=== PATIENT | female | born 1940 | race Caucasian/White ===

== ENCOUNTER 2024-08-02 18:41 | Inpatient (IN) | payer OTHER, SELFPAY ==
[2024-08-02 14:17] VITALS: BP 121/71
--- NOTE | 2024-08-02 15:47 | ED.GENMED ---
History of Present Illness
General
Chief Complaint: Fall
Source: patient
Exam Limitations: none
Time Seen by Provider: 08/02/24 15:08
Nursing documentation reviewed up to this point in time: agreed with
History of Present Illness
History of Present Illness:
Patient is an 84-year-old female who was in her kitchen today and was putting 1/2 gallon milk back into refrigerator and fell landing on her buttocks. She complains of pain to the left buttocks area. She denies hitting her head. She was able to
get herself up however called her son because she had increasingly worse pain. She complains of pain in the left buttocks. Son reports she could not walk on her own. Her primary complaint is left buttocks pain. She reports pain is not in her
back. She does feel slightly in her left leg.
She denies any headache nausea vomiting neck pain. She has not taken anything for pain.
She typically takes Tylenol as needed for arthritis discomfort but is asking for something stronger because of how bad her pain is.
Past History
Past History
ED Past Medical History: Other (Rheumatoid arthritis) and Other (Chronic low back pain)
ED Past Surgical History: Other (Pelvic mesh)
Social History
Tobacco: Non-smoker
Alcohol: None
Drug: None
Personal:
Living: with family
Review of Systems
Review of Systems
Allergies reviewed?: Yes
All Other Systems: ROS reviewed and negative except as documented in HPI and ROS
Constitutional: Reports no symptoms
Respiratory: Reports no symptoms
Cardiac: Reports no symptoms
ABD/GI: Reports no symptoms; Denies nausea or vomiting
Musculoskeletal: Reports other (Pain to left buttocks); Denies neck pain or back pain
Skin: Reports no symptoms
Neurological: Reports no symptoms and other (Denies hitting her head); Denies dizzy or headache
Psychiatric: Reports no symptoms
Phy Exam
General Physical Exam
General Presentation: no apparent distress
General age: appears stated age
General Skin: warm and dry
General Habitus: normal
General Mental: alert
General Hydration: appears well hydrated
Neurological Exam
Neurological Exam: alert and oriented x3
Musculoskeletal Exam
Musculoskeletal Exam: full ROM and other (No obvious head injury on exam no bony cervical spine thoracic or lumbar tenderness patient has tenderness to her left buttocks area however there is no visible ecchymosis abrasions no palpable hematoma.
She has full range of motion internal and external to left hip)
Skin Exam
Skin Exam: normal color and warm/dry
Psychiatric Exam
Psychiatric Exam: normal mood/affect
Course
Orders/Labs/Results
Orders:
Orders
08/02/24 15:49
IV Insert/Care/Rem.- Treatment PRN
Morphine Sulfate 2 mg IV NOW STA
Hip, Left 2-3 Views [CR Hip - LT w/wo Pel 2-3 Vw*] Urgent
Comment:
Reason For Exam: trauma
Include a pelvis x-ray?: Yes
08/02/24 16:27
Complete Blood Count/With Diff Urgent
Comprehensive Metabolic Panel Urgent
08/02/24 16:37
CT Pelvis W/o Iv Contrast Urgent
Comment:
Reason For Exam: trauma
08/02/24 17:34
Potassium Chloride 10% Elixir [KCl Elixir] 40 meq PO NOW STA
08/02/24 18:15
Admit/Transfer Patient As Directed
Co-Sign Provider:
Level of Care: Inpatient admission
Assign to:: Medical/Surgical
Physician / Group: tylor stiles
Diagnosis: mechn fall L acetabular and pubic rami fx
Reason for Hospitalization: mechn fall L acetabular and pubic rami fx
Expected length of stay greater than two midnights?: Yes
ELOS- Estimated Length of Stay in days: 3
I certify the patient meets the requirements for IP care: Yes
Code Status As Directed
Resuscitation Status: Full Code
08/02/24 18:20
PRN Pain Medication Management As Directed
May give lesser potent ordered pain med per pt: Yes
preference::
Protocol:: Medication orders for pain may be administered in a
manner that supports deferring to patient preference
when the pt is:
- Requesting an ordered lesser potent pain medication.
Least to most potent pain medications are defined
as: acetaminophen < NSAID < tramadol < opioids
(morphine, oxycodone, hydromorphone).
- Requesting a lesser dose of the same medication IF
ORDERED.
- Requesting a less intrusive route of administration
if both routes are prescribed by the provider (PO <
IV).
08/02/24 19:55
Magnesium Hydroxide [Milk of Magnesia] 30 ml PO DAILYPRN PRN
Morphine Sulfate 2 mg IV Q2HPRN PRN
Oxycodone [Roxicodone] 5 mg PO Q4HPRN PRN
Tamsulosin [Flomax] 0.4 mg PO DAILYPRN PRN
08/02/24 19:55
ORTHOPEDIC CONSULT Routine
Consulting Provider: Scott Lee
Was physician already notified: Yes
Reason for consult: fall pubic rami abd acetabular fx left
Activity As Directed
Activity Level: Bedrest
Bladder Scan As Directed
Follow Bladder Retention/Intermittent Cath Algorithm?: Yes
PRN if no void in __ hours: 6
Comment: if not voiding 6 hrs upon arrival to floor, bladder scan & follow algorithm
Intake/ Output As Directed
Frequency: Per unit guidelines
Straight Cath As Directed
Frequency: Per Retention Algorithm
Additional Instructions: straight cath as needed per acute urinary retention algorithm for 24 hrs
Additional Instructions: for bladder scan greater than 400 mL
Vital Signs As Directed
Frequency: Per unit guidelines
Ot Eval And Treat Routine
DX Deep Vein Thrombosis Video Routine
08/02/24 20:00
Acetaminophen [Tylenol] 650 mg PO Q4HWA
Docusate Sodium [Colace] 100 mg PO BID
Sennosides [Senokot] 17.2 mg PO BID
08/03/24 08:00
Calcium Carbonate/Vitamin D3 [Oscal 500 + D] 500 mg PO DAILY
FOLic ACID [Folvite] 0.8 mg PO DAILY
Hydroxychloroquine [Plaquenil] 400 mg PO DAILY
Prednisone [Deltasone] 5 mg PO DAILY
08/03/24 18:00
Enoxaparin Sodium [Lovenox] 40 mg SC QPM
Abnormal Lab Results
08/02/24
16:27
RBC 3.57 L 10^6/uL
(4.20-5.40)
Hgb 10.4 L g/dL
(12.0-16.0)
Hct 31.9 L %
(37.0-47.0)
MCHC 32.6 L g/dL
(33.0-37.0)
RDW 14.8 H %
(11.5-14.5)
Absolute Neuts (auto) 7.9 H 10^3/uL
(1.4-6.5)
Absolute Lymphs (auto) 1.0 L 10^3/uL
(1.2-3.4)
Neutrophils % 81.9 H %
(42.2-75.2)
Lymphocytes % 10.5 L %
(20.5-51.1)
Sodium 134 L mmol/L
(135-145)
Potassium 3.2 L mmol/L
(3.5-5.1)
Glucose 120 H mg/dl
(70-99)
Total Protein 6.2 L g/dl
(6.3-8.2)
08/02/24 16:27
08/02/24 16:27
Vital Signs
Initial and Last Documented VS:
Initial Vital Signs
Pulse Resp Pulse Ox
81 20 95
08/02/24 14:16 08/02/24 14:16 08/02/24 14:16
Last Documented Vital Signs
Temp Pulse Resp BP Pulse Ox
97.6 F 79 16 129/77 96
08/02/24 23:10 08/02/24 23:10 08/02/24 23:10 08/02/24 23:10 08/02/24 23:10
Biomass Plant Manager consulted with Physician
Biomass Plant Manager consulted with physician?: Yes
Name of Physician Consulted: salomón
MDM/Problems Addressed
Differential Diagnosis Includes:
not limited to: pelvic fracture, hip fracture/contusion
MDM/Problems Addressed:
Patient is an 84-year-old female who describes mechanical fall landing on her left buttocks. She complains of pain to the left buttocks area was able to even stand prior to arrival. Son had a lot of difficulty bringing patient into the ER. She
denies hitting her head denies any neck pain. On exam she is no obvious tenderness to her cervical thoracic or lumbar tenderness. She has tenderness throughout her left buttocks and has pain with range of motion twisting and turning in the
stretcher. She does have good internal/external rotation of her hip however. X-ray does show a pelvic fracture. Patient can barely sit up on her own without being in discomfort and clearly cannot stand on her own with pain. Will require
admission for pain control. Case reviewed orthopedics who does request CAT scan. Basic blood work done for admission purposes. She is stable vital and is afebrile with a normal white count stable at 10.4; potassium mildly low at 3.2 normal renal
function.
Case discussed admitting hospitalist.
CAT scan does show pelvic fractures including nondisplaced fracture of the left acetabulum and nondisplaced fracture of the inferior left sacral angelica and a displaced fracture of the left inferior pubic ramus
*Radiology
Radiology exam reviewed: preliminary read by ED provider (Left pubic ramus) and radiology read reviewed
*Pulse Oximetry
Patient hypoxic: no
*Critical Care Note
Total Time (30-74mins, 75-104mins- exclusive of procedures): Not Applicable
Patient Management
Discussion with other providers: Final Inspector Balance Wheel (Orthopedic Dr. Lee)
ED Attending Note
-
Portions of this chart may have been created with voice recognition software.� Occasional wrong word or��sound alike� substitutions may have occurred due to the inherent limitations of voice recognition software.
Discharge Plan
Departure
Patient Disposition: Admit
Date of Disposition: 08/02/24
Time of Disposition: 17:00
Admit to: Med/Surg
Admit to doctor: hospitalist
Presentation/result/management discussed w/ accepting MD/DO: Hospitalist
Patient with high blood pressure during this ER visit?: No
Covid-19: Not Applicable
Discharge Problem:
Closed fracture of left pelvis
Interventions
Interventions:
*Risk Screen - Suicide Last Done: 08/02/24 16:05
*General Assessment Last Done: 08/02/24 16:05
*Neglect/Abuse Screening Last Done: 08/02/24 16:05
*ED- Fall Risk Assessment Last Done: 08/02/24 16:05
*ED COVID-19 Vaccine History Last Done: 08/02/24 16:05
*Nursing Disposition Last Done: 08/02/24 19:41
ED-Musculoskeletal Assessment Last Done: 08/02/24 16:05
ED- Neurological Assessment Last Done: 08/02/24 16:05
ED-Skin Assessment Last Done: 08/02/24 16:05
Discharge Date and Time
Discharge Date/Time: 08/02/24 19:53
[2024-08-02] MEDS: MORPHINE SULFATE 2 MG IV ×2 (16:00→19:28)
[2024-08-02 16:34] LABS: % Basophils 0.2 % (0-2); % Eosinophils 0.6 % (0-6); % Immature Granulocytes 0.4 % (0-0.5); % Lymphocytes 10.5 % (20.5-51.1); % Monocytes 6.4 % (1.7-9.3); % Neutrophils 81.9 % (42.2-75.2); Absolute Eosinophils 0.1 10^3/uL (0-0.7); Absolute Monocytes 0.6 10^3/uL (0.1-0.6); Absolute Neutrophils 7.9 10^3/uL (1.4-6.5); Hematocrit 31.9 % (37.0-47.0); Hemoglobin 10.4 g/dL (12.0-16.0); Mean Corp Hgb Conc. 32.6 g/dL (33.0-37.0); Mean Corpuscular Hgb 29.1 pg (27.0-31.0); Mean Corpuscular Volume 89.4 fL (81.0-99.0); Mean Platelet Volume 8.5 fL (7.4-10.4); Nucleated Red Blood Cells % 0 %; Platelet Count 200 10^3/uL (130-400); Red Blood Cell Count 3.57 10^6/uL (4.20-5.40); Red Cell Dist. Width 14.8 % (11.5-14.5); White Blood Cell Count 9.6 10^3/uL (4.8-10.8)
[2024-08-02 16:48] LABS: ALT (SGPT) 16 U/L (0-35); AST (SGOT) 27 U/L (14-36); Alkaline Phosphatase 54 U/L (38-126); Blood Urea Nitrogen 17 mg/dl (7-17); Calcium 8.8 mg/dl (8.4-10.2); Carbon Dioxide 23 mmol/L (22-30); Chloride 101 mmol/L (98-107); Glucose 120 mg/dl (70-99); Potassium 3.2 mmol/L (3.5-5.1); Sodium 134 mmol/L (135-145); Total Protein 6.2 g/dl (6.3-8.2); eGFR > 60.00
--- NOTE | 2024-08-02 17:34 | HPS.HSE ---
Addendum entered and electronically signed by HARITHA Luis 08/02/24 21:10:
Discussed CT pelvis results with Dr. Scott Lee:
Patient may weight-bear with walker
Consult PT
Pain control
DVT prophylaxis okay subcu Lovenox
No surgery indicated
Original Note:
Family Physician
-
Family Physician: Elliot Rodriguez
Chief Complaint
-
Fall, left buttocks pain to middle left thigh
History of Present Illness
84-year-old female from home who was in her kitchen today when putting away half gallon milk back into the refrigerator she fell landing on her buttocks at around 930 this a.m. she is complaining of pain to the left side of her buttocks area and
slightly down her left leg. She denies hitting her head or LOC she was able to get herself up ,however called her son at 1 PM due to increased pain with standing and inability to walk. She denies any neck or back pain. She has history of
arthritis and typically takes Tylenol but does not feel that will control the pain. She was given IV morphine in the ER. He has past medical history of rheumatoid arthritis, osteoarthritis, chronic low back pain/compression fractures, HTN, HLD,
[place]'s disease, renal calculi, arm cellulitis 2017.
Medical History
Past Medical History
Past Medical History: Reports Other
Additional Past Medical History:
Rheumatoid arthritis
Osteoarthritis
Chronic low back pain/compression fractures L1 necrotic retropulsed fracture 11/02/2017 MRI
Severe spinal canal stenosis
Chronic ambulatory dysfunction uses walker or cane in house
HTN
HLD
SVT 10/30/2017 treated with Cardizem
[place]'s disease
renal calculi
arm cellulitis 2017
Past Surgical History: Reports Other
Additional Past Surgical History:
Bladder sling
Renal calculi removal
I&D of finger in OR 1994
Social History
Tobacco: Non-smoker
Alcohol: None
Drug: None
Personal: Single
Living: Alone (Two-story home but has chairlift)
Employment: Retired
Family History
Family History: Other (Mother age 91 CHF, father age 86 CHF, 1 brother diabetes mellitus complications late 70s, 1 brother living history of OA and DM2)
Allergies / Home Medications
Allergies reflects when Allergies were last updated in [facility].
Home Medications with original date entered in [facility]
Allergy/Medication List:
Allergies
Allergy/AdvReac Type Severity Reaction Status Date / Time
NKA - No Known Allergies Allergy Unknown Uncoded 11/01/17 15:14
Home Medications
biotin 10,000 mcg capsule 10,000 mcg PO DAILY 11/01/17
hydroxychloroquine 200 mg tablet 400 mg PO DAILY 11/01/17
multivitamin with folic acid 400 mcg tablet (Tab-A-Sudeep) 1 tab PO DAILY 11/01/17
omega 7-fks-ujf-fish oil 300 mg-1,000 mg capsule (Fish Oil) 1 ea PO DAILY 11/01/17
potassium chloride 10 mEq tablet,extended release (Klor-Con) 10 meq PO BID 11/01/17
prednisone 5 mg tablet 5 mg PO DAILY 11/01/17
Saccharomyces boulardii 250 mg capsule 250 mg PO BID ##30 11/08/17
methotrexate sodium 2.5 mg tablet 15 tab PO MORILLO ##0 11/08/17
calcium 600 mg (as carbonate)-vitamin D3 10 mcg (400 unit) tablet 2 tab PO DAILY 08/02/24
folic acid 800 mcg tablet 0.8 mg PO DAILY 08/02/24
Review of Systems
-
History Source: Patient and Family (Son at bedside)
A 12 point ROS was completed and negative except as noted: Yes
Constitutional: Denies Fever, Fatigue or Chills
EENT: Denies Sore Throat or Runny Nose
Respiratory: Denies Cough or Trouble Breathing
Cardiac: Denies Chest Pain, Diaphoresis, Palpitations or Syncope
Abdomen/GI: Denies Abdominal Pain, Nausea, Vomiting, Diarrhea, Constipated or Bloody Stools
: Denies Dysuria, Frequency, Flank Pain, Incontinence, Difficulty Voiding or Urgency
Musculoskeletal: Reports Other (Left mid buttocks point tenderness radiates to posterior left mid thigh); Denies Joint Pain or Edema
Skin: Denies Itching or Rash
Neurological: Denies Dizzy, Headache or Weakness
Endocrine: Reports No Symptoms
Hematologic/Lymphatic: Reports No Symptoms
Psych: Reports Calm
Physical Exam
Vital Signs
Vital Signs
Temp Pulse Resp BP Pulse Ox
97.5 F 81 18 121/71 95
08/02/24 14:17 08/02/24 14:16 08/02/24 16:18 08/02/24 14:17 08/02/24 14:16
Physical Exam
General: Conversant and Pain (4/10 post IV morphine was 8 out of 10); No Chills
HEENT: NormoCephalic, Anicteric, Moist mucous membranes, Atraumatic, PERRLA, [place] Conjunctivae, No Ptosis and Neck Nontender
Respiratory: Clear; No Wheezes, Rales or Rhonchi
Cardiac: S1/S2 and Regular Rhythm; No Murmur, Rub, Gallop or Peripheral Edema
GI: Soft, Non Tender, Non Distended, Normal Bowel Sounds and No Hepatosplenomegaly
Rectal: Deferred by Provider
Genito-urinary: Deferred by me
Musculoskeletal: No Clubbing, No Cyanosis, No Edema and Other (Left mid buttocks point tenderness radiates to posterior left mid thigh, no external rotation)
Skin: Warm and Dry; No Rash
Neuro: AO x 3, Nonfocal/grossly intact, Cranial Nerves Intact, No Sensory Deficits and Other (Left leg limited movement secondary to pain and pelvic fracture); No Slurred Speech, Facial Droop, Tremors or Sedated
Psych: Calm
Laboratory Results
-
08/02/24 16:27
08/02/24 16:27
Laboratory Results
Total Bilirubin 1.0 mg/dl (0.2-1.3) 08/02/24 16:27
AST 27 U/L (14-36) 08/02/24 16:27
ALT 16 U/L (0-35) 08/02/24 16:27
Alkaline Phosphatase 54 U/L (38-126) 08/02/24 16:27
Data Reviewed
-
Diagnostic Radiology: Report Reviewed by me
Lab Data: Labs Reviewed by me
Impression/Plan
-
Impression/plan:
Admit to MedSurg
#Mechanical fall with Left medial acetabular wall and Left inferior pubic ramus
-Consult Ortho Dr. Lee aware
-Check CT pelvis
-Tylenol mild pain, oxycodone moderate pain, morphine severe pain, bowel regimen
-PT/OT/case management consult
#Hypokalemia secondary to HCTZ
-KCl 40 mEq given now
-Follow BMP
#Rheumatoid arthritis
#Osteoarthritis
-Patient gets Simponiaria infusions every 8 weeks
-Methotrexate on Sundays
-Prednisone 5 mg daily
-Continue Plaquenil 400 mg daily
-Follows with rheumatology
#Chronic low back pain/compression fractures L1 necrotic retropulsed fracture 11/02/2017 MRI
#Severe spinal canal stenosis
-Continue calcium plus vitamin D3
#HTN�benign
-BP 121/71
-Continue amlodipine 5 mg daily, hydrochlorothiazide 25 mg daily
#Chronic anemia�normocytic
Hgb 10.4 baseline 9.5
#HLD
-Continue fish oil
#SVT 10/30/2017 treated with Cardizem BUT no longer on
#[place]'s disease
-Continue prednisone 5 mg daily
Other PMH:
Renal calculi s/p lithotripsy
Arm cellulitis 2018
DVT prophylaxis
Subcu Lovenox
Full code
[2024-08-02] MEDS: KCL ELIXIR 40 MEQ PO (18:09)
--- NOTE | 2024-08-02 19:12 | W.PN.UPDATE ---
Update Note
Progress Note Update
This is an addendum to the H&P written by Keely Lazo on 08/02/2024.� Patient seen and examined independently with ARTS EDUCATION TEACHER.
84-year-old female past medical history of rheumatoid arthritis, osteoarthritis, severe spinal stenosis, necrotic L1 compression fracture, hypertension, hyperlipidemia, SVT, [place]'s disease, no calculi, presenting with fall onto her butt.� Severe
pain.
Hip x-ray shows fracture of the left medial acetabular wall and left inferior pubic ramus.
Labs show hypokalemia secondary to HCTZ.
Pain control with Tylenol, oxycodone, morphine.� Orthopedics consulted and recommended CT scan of pelvis. Replete potassium.�
--- NOTE | 2024-08-02 20:00 | PTCARENOTE ---
Pt arrived to [facility] from ED, pullover assist from stretcher to bed. Pain level 4/10 in left hip after IV morphine. AAOx3, VSS. Bed in lowest position, call estrada in reach, bed alarm in place. Purewick in place d/t left hip fracture. Plan of
care reviewed with patient.
[2024-08-02 20:06] VITALS: BP 133/73; BMI 23.1
[2024-08-02] MEDS: SENOKOT PO (21:46)
[2024-08-02] MEDS: TYLENOL PO (21:46)
[2024-08-02] MEDS: COLACE PO (21:46)
[2024-08-02 23:10] VITALS: BP 129/77
[2024-08-02 23:52] VITALS: BP 129/77
[2024-08-03] MEDS: TYLENOL PO ×2 (00:36→04:42)
[2024-08-03] MEDS: MORPHINE SULFATE 2 MG IV ×2 (05:04→08:24)
[2024-08-03 05:16] VITALS: BP 134/71
[2024-08-03] MEDS: FLOMAX 0.4 MG PO (05:16)
[2024-08-03 07:00] VITALS: BP 102/56
--- NOTE | 2024-08-03 07:41 | W.PN.UPDATE ---
Update Note
Progress Note Update
Patient seen evaluated this morning. Imaging reviewed. There was some question regarding medial acetabular fracture. This is more of a pubic root fracture on CT scan rather than true anterior column injury.
84-year-old female with LC 1 type pelvic injury with left inferior pubic rami fracture, pubic root fracture as well as sacral impaction fracture
Weightbearing as tolerated left lower extremity with a walker
PT OT
Pain control
Medical management per primary team
DVT prophylaxis per primary team
Follow-up outpatient in 2 to 3 weeks for repeat evaluation repeat radiographs
Please reach out questions or concerns
Formal consult note to follow
[2024-08-03] MEDS: OSCAL 500 + D 500 MG PO (08:23)
[2024-08-03] MEDS: TYLENOL 650 MG PO ×4 (08:23→21:21)
[2024-08-03] MEDS: COLACE 100 MG PO ×2 (08:24→21:21)
[2024-08-03] MEDS: SENOKOT 17.2 MG PO ×2 (08:24→21:21)
[2024-08-03] MEDS: DELTASONE 5 MG PO (08:24)
[2024-08-03] MEDS: FOLVITE 0.8 MG PO (08:24)
[2024-08-03] MEDS: PLAQUENIL 400 MG PO (08:24)
[2024-08-03 09:06] LABS: Hematocrit 31.6 % (37.0-47.0); Hemoglobin 10.3 g/dL (12.0-16.0); Mean Corp Hgb Conc. 32.6 g/dL (33.0-37.0); Mean Corpuscular Hgb 29.3 pg (27.0-31.0); Mean Platelet Volume 8.5 fL (7.4-10.4); Platelet Count 168 10^3/uL (130-400); Red Blood Cell Count 3.51 10^6/uL (4.20-5.40); Red Cell Dist. Width 15.2 % (11.5-14.5); White Blood Cell Count 7.2 10^3/uL (4.8-10.8)
[2024-08-03 09:28] LABS: Blood Urea Nitrogen 17 mg/dl (7-17); Calcium 8.1 mg/dl (8.4-10.2); Carbon Dioxide 24 mmol/L (22-30); Chloride 104 mmol/L (98-107); Estimated Creatinine Clearance 47 ml/min; Glucose 113 mg/dl (70-99); Potassium 3.6 mmol/L (3.5-5.1); Sodium 133 mmol/L (135-145); eGFR > 60.00
[2024-08-03 09:33] VITALS: BP 78/52; BP 96/72; PULSE 87; O2SAT 97
[2024-08-03 09:36] VITALS: BP 78/52; BP 96/72; O2SAT 97
--- NOTE | 2024-08-03 13:20 | W.PN.HOSP.TC ---
Today's Communication/Plan
-
Monitor vital signs
see plan
Per orthopedics, conservative management and follow-up with them outpatient
PT rec SNF; CM aware
discharge planning
Assessment / Plan
Assessment / Plan
General: Conversant and Pain (4/10 post IV morphine was 8 out of 10); No Chills
HEENT: NormoCephalic, Anicteric, Moist mucous membranes, Atraumatic, PERRLA, [place] Conjunctivae, No Ptosis and Neck Nontender
Respiratory: Clear; No Wheezes, Rales or Rhonchi
Cardiac: S1/S2 and Regular Rhythm; No Murmur, Rub, Gallop or Peripheral Edema
GI: Soft, Non Tender, Non Distended, Normal Bowel Sounds
Musculoskeletal:No Edema and Other (Left mid buttocks point tenderness radiates to posterior left mid thigh, no external rotation)
Skin: Warm and Dry; No Rash
Neuro: AO x 3, Nonfocal/grossly intact, Cranial Nerves Intact, No Sensory Deficits and Other (Left leg limited movement secondary to pain and pelvic fracture)
Psych: Calm
Mechanical fall with Left medial acetabular wall and Left inferior pubic ramus
Seen by orthopedics, weightbearing as tolerated left lower extremity with a walker. PT recommending SNF. storage garage manager aware.
Pain control
-Tylenol mild pain, oxycodone moderate pain, morphine severe pain, bowel regimen
-PT/OT rec SNF; CM aware
Per orthopedics there is more of a pubic root fracture on CT scan rather than true anterior column injury.
#Hypokalemia secondary to HCTZ
monitor
Hyponatremia
monitor
#Rheumatoid arthritis
#Osteoarthritis
-Patient gets Simponiaria infusions every 8 weeks
-Methotrexate on Sundays
-Prednisone 5 mg daily
-Continue Plaquenil 400 mg daily
-Follows with rheumatology
#Chronic low back pain/compression fractures L1 necrotic retropulsed fracture 11/02/2017 MRI
#Severe spinal canal stenosis
-Continue calcium plus vitamin D3
#HTN�benign
-Continue amlodipine 5 mg daily, hydrochlorothiazide 25 mg daily
#Chronic anemia�normocytic
monitor
#HLD
-Continue fish oil
#SVT 10/30/2017 treated with Cardizem BUT no longer on
#[place]'s disease
-Continue prednisone 5 mg daily
Other PMH:
Renal calculi s/p lithotripsy
Arm cellulitis 2017
DVT prophylaxis
Subcu Lovenox
Full code
Anticipated Discharge: Today
Subjective/Interval History
-
Date of Service: August 03, 2024
denies pain
Objective Data
-
Labs:
Laboratory Results
08/03/24
08:54
WBC 7.2
Hgb 10.3 L
Hct 31.6 L
Plt Count 168
Sodium 133 L
Potassium 3.6
Chloride 104
Carbon Dioxide 24
BUN 17
Creatinine 0.7
Glucose 113 H
Calcium 8.1 L
Vital Signs:
Vital Signs
Temp Pulse Resp BP Pulse Ox
97.2 F 81 18 102/56 97
08/03/24 07:00 08/03/24 07:00 08/03/24 07:00 08/03/24 07:00 08/03/24 07:00
I&O
08/02/24 08/03/24 08/04/24
06:59 06:59 06:59
Output Total 800 / 800
Balance -800 / -800
[2024-08-03 15:00] VITALS: BP 111/62
--- NOTE | 2024-08-03 16:39 | CM ---
gas well drilling manager reviewed patient's chart and met with patient and patient lives alone in a 2 story home, with chair lift to 2nd floor, patient is independent with adl's and uses a cane or walker with ambulation.
PCP: Dr. Rodriguez
Pharmacy: [facility]
Plan; Plan is for skilled placement options reviewed with patient and she has selected [facility] or [facility]
[2024-08-03] MEDS: LOVENOX 40 MG SC (17:00)
--- NOTE | 2024-08-03 18:30 | CON.ORTHO ---
Consultation - Orthopedics
History
84-year-old female presented to the emergency department status post fall at home with complaints of left hip pain and inability to bear weight. She was subsequently diagnosed with left martir-pelvic fracture. She is admitted to the hospitalist
service. Orthopedics is consulted for further evaluation and treatment. This morning patient reports that she was in her kitchen when she tripped and fell. She localizes pain mostly to the left groin region. She does complain of some chronic
back pain as well low back. She reports that she lives at home and is quite independent. She does use a cane or walker for ambulatory assistance.
Allergies / Home Medications
Past medical history: Rheumatoid arthritis, chronic back pain, ambulatory dysfunction, Randall's disease, SVT
Past surgical history: Bladder sling, renal calculi removal, I&D finger
Social history: Non-smoker, lives alone at home
Family history: Not pertinent
Allergy/AdvReac Type Severity Reaction Status Date / Time
NKA - No Known Allergies Allergy Unknown Uncoded 11/01/17 15:14
�Medication �Instructions �Recorded
biotin 10,000 mcg capsule 10,000 mcg PO DAILY 11/01/17
hydroxychloroquine 200 mg tablet 400 mg PO DAILY 11/01/17
prednisone 5 mg tablet 5 mg PO DAILY 11/01/17
Nutrafol Hair 1 cap PO DAILY 08/02/24
acetaminophen 650 mg 1,300 mg PO Q8HPRN PRN mild pain 08/02/24
tablet,extended release
amlodipine 5 mg tablet 5 mg PO DAILY 08/02/24
calcium 600 mg (as 2 tab PO DAILY 08/02/24
carbonate)-vitamin D3 10 mcg (400
unit) tablet
folic acid 800 mcg tablet 0.8 mg PO DAILY 08/02/24
hydrochlorothiazide 25 mg tablet 25 mg PO DAILY 08/02/24
methotrexate sodium 2.5 mg tablet 7.5 tab PO SA 08/02/24
potassium chloride 20 mEq 20 meq PO BID 08/02/24
tablet,extended release
varenicline tartrate 0.03 mg/spray 1 spray intranasal BID 08/02/24
metered nasal spray (Tyrvaya)
Vital Signs / Lab Results
Temp Pulse Resp BP Pulse Ox
98.0 F 81 20 111/62 96
08/03/24 15:00 08/03/24 15:00 08/03/24 15:00 08/03/24 15:00 08/03/24 15:00
08/03/24 08:54
08/03/24 08:54
10 point review systems reviewed and negative unless otherwise stated
General: Pleasant, no acute distress at rest
Musculoskeletal left lower extremity
Skin intact, no erythema or ecchymotic staining
tenderness palpation groin and lateral trochanteric flare
Painful range of motion left hip
No palpable ipsilateral knee effusion
Positive EHL, FHL, ankle dorsiflexion, plantarflexion
Brisk refill distally
No other areas of bony tenderness palpation or crepitation of long bones or joints on tertiary examination
Diagnostic studies
X-rays left hip CT scan pelvis independently viewed by myself. Radiology report reviewed. Discussed with patient at length. There is a mildly displaced left sided inferior pubic rami fracture as well as a left-sided superior pubic root fracture.
There is also noted to be a left-sided sacral impaction fracture
Assessment / Plan
84-year-old female status post fall left hemipelvic fracture consistent with L1 compression type injury. Reviewed CT scan. There is no evidence of true anterior column injury. This is more of a pubic root type fracture. Treatment options
discussed at length with the patient. Would recommend conservative treatment and she was in agreement. Plan immobilize patient with walker and physical therapy. Continue with pain control. Consider placement. DVT prophylaxis of choice per
primary team
Weightbearing as tolerated left lower extremity with walker
PT OT
Pain control
DVT prophylaxis per primary team
Medical management per primary team
Plan follow-up on an outpatient basis in about 3 weeks for repeat evaluation
[2024-08-03] MEDS: ROXICODONE 5 MG PO (21:31)
[2024-08-03 23:10] VITALS: BP 103/72
[2024-08-04] MEDS: TYLENOL PO ×2 (01:20→03:25)
[2024-08-04 07:00] VITALS: BP 110/63
[2024-08-04 08:02] LABS: Hematocrit 28.3 % (37.0-47.0); Hemoglobin 9.1 g/dL (12.0-16.0); Mean Corp Hgb Conc. 32.2 g/dL (33.0-37.0); Mean Corpuscular Hgb 29.3 pg (27.0-31.0); Mean Platelet Volume 8.9 fL (7.4-10.4); Platelet Count 158 10^3/uL (130-400); Red Blood Cell Count 3.11 10^6/uL (4.20-5.40); Red Cell Dist. Width 14.8 % (11.5-14.5); White Blood Cell Count 6.8 10^3/uL (4.8-10.8)
[2024-08-04] MEDS: COLACE 100 MG PO (08:04)
[2024-08-04] MEDS: DELTASONE 5 MG PO (08:05)
[2024-08-04] MEDS: FOLVITE 0.8 MG PO (08:05)
[2024-08-04] MEDS: PLAQUENIL 400 MG PO (08:05)
[2024-08-04] MEDS: OSCAL 500 + D 500 MG PO (08:05)
[2024-08-04] MEDS: TYLENOL 650 MG PO ×3 (08:05→15:55)
[2024-08-04] MEDS: SENOKOT 17.2 MG PO (08:06)
[2024-08-04] MEDS: MORPHINE SULFATE 2 MG IV (08:06)
[2024-08-04 08:32] LABS: Blood Urea Nitrogen 19 mg/dl (7-17); Calcium 8.3 mg/dl (8.4-10.2); Carbon Dioxide 25 mmol/L (22-30); Chloride 105 mmol/L (98-107); Estimated Creatinine Clearance 47 ml/min; Glucose 103 mg/dl (70-99); Potassium 3.6 mmol/L (3.5-5.1); Sodium 136 mmol/L (135-145); eGFR > 60.00
[2024-08-04 08:46] VITALS: BP 129/68; BP 94/63; PULSE 78
[2024-08-04 08:47] VITALS: BP 118/61; BP 129/68; BP 94/53; PULSE 78
--- NOTE | 2024-08-04 10:52 | W.PN.HOSP.TC ---
Addendum entered and electronically signed by Jigar Finnegan MD 08/05/24 09:24:
Fracture secondary to mechanical fall
Addendum entered and electronically signed by Jigar Finnegan MD 08/04/24 13:01:
Orthostatic much improved, no further dizziness
Discharge today
Time of discharge 38 minutes
Original Note:
Today's Communication/Plan
-
Monitor vital signs
see plan
Pending placement, supervisor case loading aware
TEDS,gentle hydration
monitor orthos
pain control
Assessment / Plan
Assessment / Plan
General: Conversant and Pain (4/10 post IV morphine was 8 out of 10); No Chills
HEENT: NormoCephalic, Anicteric, Moist mucous membranes, Atraumatic, PERRLA, [place] Conjunctivae, No Ptosis and Neck Nontender
Respiratory: Clear; No Wheezes, Rales or Rhonchi
Cardiac: S1/S2 and Regular Rhythm; No Murmur, Rub, Gallop or Peripheral Edema
GI: Soft, Non Tender, Non Distended, Normal Bowel Sounds
Musculoskeletal:No Edema and Other (Left mid buttocks point tenderness radiates to posterior left mid thigh, no external rotation)
Neuro: AO x 3, Nonfocal/grossly intact, Cranial Nerves Intact, No Sensory Deficits and Other (Left leg limited movement secondary to pain and pelvic fracture)
Psych: Calm
Mechanical fall with Left medial acetabular wall and Left inferior pubic ramus
Seen by orthopedics, weightbearing as tolerated left lower extremity with a walker. PT recommending SNF. manager hotel aware.
Pain control
-Tylenol mild pain, oxycodone for pain, bowel regimen
-PT/OT rec SNF; CM aware
Per orthopedics there is more of a pubic root fracture on CT scan rather than true anterior column injury.
#Hypokalemia secondary to HCTZ
monitor
Hyponatremia
monitor
#Rheumatoid arthritis
#Osteoarthritis
-Patient gets Simponiaria infusions every 8 weeks
-Methotrexate on Sundays
-Prednisone 5 mg daily
-Continue Plaquenil 400 mg daily
-Follows with rheumatology
#Chronic low back pain/compression fractures L1 necrotic retropulsed fracture 11/02/2017 MRI
#Severe spinal canal stenosis
-Continue calcium plus vitamin D3
mild orthostasis
gentle hydration
TEDS
feeling better today
#HTN�benign
-hold amlodipine 5 mg daily, hydrochlorothiazide 25 mg daily
#Chronic anemia�normocytic
monitor
#HLD
-Continue fish oil
#SVT 10/30/2017 treated with Cardizem BUT no longer on
#[place]'s disease
-Continue prednisone 5 mg daily
Other PMH:
Renal calculi s/p lithotripsy
Arm cellulitis 2017
DVT prophylaxis
Subcu Lovenox
Full code
Anticipated Discharge: Today
Subjective/Interval History
-
Date of Service: August 04, 2024
Has some pain
Objective Data
-
Labs:
Laboratory Results
08/04/24
07:32
WBC 6.8
Hgb 9.1 L
Hct 28.3 L
Plt Count 158
Sodium 136
Potassium 3.6
Chloride 105
Carbon Dioxide 25
BUN 19 H
Creatinine 0.7
Glucose 103 H
Calcium 8.3 L
Vital Signs:
Vital Signs
Temp Pulse Resp BP Pulse Ox
98.1 F 83 20 110/63 97
08/04/24 07:00 08/04/24 07:00 08/04/24 07:00 08/04/24 07:00 08/04/24 08:00
I&O
08/03/24 08/04/24 08/05/24
06:59 06:59 06:59
Intake Total 840 / 840
Output Total 800 / 800 100 / 100
Balance -800 / -800 840 / 840 -100 / -100
[2024-08-04] MEDS: NSS 500 IV (11:24)
[2024-08-04 12:44] VITALS: BP 121/59; BP 132/64; PULSE 78; PULSE 79
[2024-08-04 13:05] LABS: COVID-19 Antigen Negative (Negative)
--- NOTE | 2024-08-04 13:18 | W.DCSUMMARY ---
Discharge Summary
Discharge Data
Date of Admission: 08/02/24
Date of Discharge: 08/04/24
-
Pending Results: No
Hospital Course
84-year-old female with past medical history of rheumatoid arthritis, osteoarthritis, chronic back pain/compression fracture, hypertension, anemia, hyperlipidemia, SVT, [place]'s disease, nephrolithiasis, cellulitis came to the hospital after a fall
with pelvic fracture. There was also initial concern of left medial acetabular wall fracture however orthopedics that patient likely has pelvic fracture. Orthopedics recommended nonsurgical management. Patient was eval by physical therapy who
recommended SNF. Patient also had mild orthostatic hypotension which continue to improve over time with teds and fluids. On discharge patient hydrochlorothiazide and amlodipine was held and was instructed to resume them and her blood pressure is
high. Once patient had placement and she was feeling better, she was then discharged to rehab with instructions to follow-up with all her physicians outpatient.
Discharge Plan
-
Patient Disposition: Alf/SNF
Discharge Diagnosis/Procedures: Mechanical fall with possible left inferior pubic ramus fracture
Left-sided sacral impaction fracture
Mild orthostatic hypotension
Condition: Fair
Diet: As tolerated
Activity: With Walker and Other activity
Additional Activity: Weightbearing as tolerated left lower extremity with walker
Driving Restrictions: Not until seen by your Dr
Bathing Restrictions: None
Referrals:
Elliot Rodriguez DO [Family Provider] - in less than 1 week
Scott Lee MD [Active] - in two to three weeks
Prescriptions:
New
docusate sodium 100 mg Capsule
100 mg PO BID Qty: 0 0RF
sennosides [Fatou-chidi] 8.6 mg Tablet
17.2 mg PO BID Qty: 0 0RF
oxycodone 5 mg Tablet
5 mg PO Q4HPRN PRN (Reason: mod to severe pain) Qty: 10 0RF
Continued
prednisone 5 MG tablet
5 mg PO DAILY
biotin 10,000 MCG capsule
10,000 mcg PO DAILY
hydroxychloroquine 200 MG tablet
400 mg PO DAILY
folic acid 800 mcg Tablet
0.8 mg PO DAILY
calcium carbonate-vitamin D3 600 mg-10 mcg (400 unit) Tablet
2 tab PO DAILY
potassium chloride 20 mEq Tablet Extended Release
20 meq PO BID
Nutrafol Hair
1 cap PO DAILY
methotrexate sodium 2.5 MG tablet
7.5 tab PO SA
Patient Comments:
patient states that she takes 3 tab on Sat
acetaminophen 650 mg Tablet Extended Release
1,300 mg PO Q8HPRN PRN (Reason: mild pain)
Tyrvaya 0.03 mg/spray [place], Metered, Non-Aerosol
1 spray INTRANASAL BID
Rx Instructions:
administer into each nostril; approximately 12 hours apart
Held
hydrochlorothiazide 25 mg Tablet
25 mg PO DAILY
Hold Instructions: Restart when blood pressure greater than 140/90
amlodipine 5 mg Tablet
5 mg PO DAILY
Hold Instructions: Restart when blood pressure greater than 140/90
Discharge Orders:
Discharge Patient (As Directed); Ordered 08/04/24
Ordered By: Jigar Finnegan
Discharge Date and Time
Discharge Date/Time: 08/04/24 16:44
Print Language: MALAY
[2024-08-04 14:50] VITALS: BP 97/59
--- NOTE | 2024-08-04 14:57 | CM ---
Patient has been approved and accepted at [facility] today, Auth received, 7 days skilled [id number], 08/04-08/10 NRD 08/10. Ambulance Auth with Acute care [id number], $175 copay, patient aware, family aware of discharge.
[facility]
Report [id number]
--- NOTE | 2024-08-04 15:25 | PN.CDI ---
CDI
- -
CDI:
Physician Documentation Request
Admit Date: 08/02/24 18:41
Dear Doctor Kain,
Patient admitted with left inferior pubic ramus fracture.
ED note, '84-year-old female who was in her kitchen today and was putting 1/2 gallon milk back into refrigerator and fell landing on her buttocks.
08/04 PN,'Chronic low back pain/compression fractures L1 necrotic retropulsed fracture 11/02/2017 MRI....Continue calcium plus vitamin D3.'
Please provide in your note the likely etiology/ etiologies of the documented left inferior pubic ramus fracture:
Multifactorial due to low level mechanical fall and age-related osteoporosis
Low level mechanical fall only
Other
Use of terms such as suspected, likely, concern for, or probable (associated with a specific diagnosis that is being evaluated, monitored, or treated as if it exists) are acceptable and can be coded in the inpatient setting, when documented at the
time of discharge.
Thank you,
Mary ALFARO,RN,CCDS
CDI Specialist
Available via Dorothy text
Please use your independent medical judgment in providing your response.
== END 2024-08-04 16:44 | DRG 536 ==
LOC: 4 WEST ACU 18:41
PROVIDERS: Nurse Practitioner; ADMITTING PHYSICIAN Hospitalist; ATTENDING PHYSICIAN Internal Medicine; CONSULT PHYSICIAN Orthopaedic Surgery; EMERGENCY PHYSICIAN Emergency Medicine; FAMILY PHYSICIAN Family Medicine
DX: S32.475A Nondisplaced fracture of medial wall of left acetabulum, initial encounter for closed fracture (principal); S32.592A Other specified fracture of left pubis, initial encounter for closed fracture; E87.1 Hypo-osmolality and hyponatremia; E27.1 Primary adrenocortical insufficiency; W01.0XXA Fall on same level from slipping, tripping and stumbling without subsequent striking against object, initial encounter; T50.2X5A Adverse effect of carbonic-anhydrase inhibitors, benzothiadiazides and other diuretics, initial encounter; E87.6 Hypokalemia; M06.9 Rheumatoid arthritis, unspecified; M19.90 Unspecified osteoarthritis, unspecified site; G89.29 Other chronic pain; M48.00 Spinal stenosis, site unspecified; E78.5 Hyperlipidemia, unspecified; Z87.442 Personal history of urinary calculi; I10 Essential (primary) hypertension; Z83.3 Family history of diabetes mellitus; Z82.49 Family history of ischemic heart disease and other diseases of the circulatory system; Z79.899 Other long term (current) drug therapy; D64.9 Anemia, unspecified; Z11.52 Encounter for screening for COVID-19
CPT/HCPCS: 72192; 73502; 80048; 80053; 85025; 85027; 87811; 96374; 97163; 97167; 97530; 99285

== ENCOUNTER → 2024-09-18 10:55 | Outpatient (REF) | payer OTHER, SELFPAY | LOC: HWRAD 10:55 | PROVIDERS: ATTENDING PHYSICIAN Internal Medicine Rheumatology; FAMILY PHYSICIAN Family Medicine | DX: M81.0 Age-related osteoporosis without current pathological fracture (principal) | CPT/HCPCS: 77080 ==